=== PATIENT | female | born 1995 | race Caucasian/White ===

== ENCOUNTER 2019-03-06 02:02 | Inpatient (IN) ==
[2019-03-06] MEDS ORDERED: *HR* LORazepam 1 MG TABLET PO PRN (02:17)
[2019-03-06] MEDS ORDERED: Mag Hydrox/Al Hydrox/Simeth 30 ML UDC PO PRN (02:17)
[2019-03-06] MEDS ORDERED: MOM Conc 10 ML UD.LIQ PO PRN (02:17)
[2019-03-06] MEDS ORDERED: Ibuprofen 400 MG TABLET PO PRN (02:17)
[2019-03-06] MEDS ORDERED: Haloperidol Lactate 5 MG/ML VIAL IM PRN (02:17)
[2019-03-06] MEDS ORDERED: *HR* LORazepam 2 MG/ML VIAL IM PRN (02:17)
[2019-03-06] MEDS: traZODone 50 MG TABLET PO PRN ×2 (02:35→20:46)
[2019-03-06] MEDS: hydrOXYzine pamoate 25 MG CAPSULE PO PRN ×2 (02:35→20:47)
[2019-03-06] MEDS: Nicotine 21 MG PATCH.TD24 TD SCH (09:16)
[2019-03-07 08:50] VITALS: BP 110/77
[2019-03-07] MEDS: Nicotine 21 MG PATCH.TD24 TD SCH (08:52)
--- NOTE | 2019-03-07 10:39 | Psychiatry History & Physical ---
Date of Encounter: 03/07/19 Time of Encounter: 10:33 History of Present Illness Patient Stated Chief Complaint: suicidal ideation Medicare Admission Attestation: For traditional Medicare patients the provided hospital inpatient services are reasonable and necessary and in the case of services not specified as inpatient-only under 42 CFR 419.22 (n), that they are appropriately provided as inpatient services in accordance 42 CFR 412.3. For Critical Access Hospital the patient may reasonably be expected to be discharged or transferred to a hospital within 96 hours after admission to the Critical Access Hospital. Admitted From: Home Plans for Post Hospital Care: Home History of Present Illness: Ms. Bullard is a 23 year old female who was admitted for SI and cutting behaviors. Client reports a long history of SI and cutting behaviors but states that yesterday was the worst she has ever injured herself and knew she needed help. Client has never been inpatient before. She has had outpatient linkage but nothing current. Previously took Zoloft with some benefit and interested in restarting it. Discussed DBT theray. Client interested but no DBT therapists in her area. Will give her information on providers who practice DBT so client has the option of following up in the future. Will also link her with providers in her area. Client states she is physically healthy. No major drugs of abuse. Support from family but lives with grandmother and grandmother left yesterday for [place] due to a in the family. Client states her grandmother leaving is part of the reason her urges to cut intensified. *H&P written yesterday but did not save so this is a late entry. Past Med Surg Social Fam HX - Past Medical History Medical history: no medical history - Past Psychiatric History Psychiatric history: Reports: depression Family psychiatric history: No Family History of Suicide: None - Past Surgical History Surgical History: cholecystectomy - Social History Smoking Status: Current every day smoker Smokeless Tobacco Status: No Alcohol use: heavy Drug use: marijuana, methamphetamine Medications & Allergies No Known Home Drugs 03/06/19 [History] Allergy/AdvReac Type Severity Reaction Status Date / Time Penicillins [PCN] Allergy Anaphylaxis Verified 06/10/18 08:22 Review of Systems Constitutional: Denies: fever, chills, weakness, weight change Eyes: Denies: eye pain, vision change Ears, Nose, Throat: Denies: ear pain, throat pain, dental pain, hearing loss, congestion Cardiovascular: Denies: chest pain, palpitations, dyspnea on exertion Respiratory: Denies: cough, dyspnea, wheezes Gastrointestinal: Denies: abdominal pain, nausea, vomiting, diarrhea, constipation Genitourinary female: Denies: urgency, dysuria, frequency, abnormal menses, dyspareunia Musculoskeletal: Denies: joint swelling, joint pain Integumentary: Denies: rash, lesions, pruritus Neurological: Denies: headache, weakness, numbness, memory loss Endocrine: Denies: fatigue, heat or cold intolerance Hematologic/Lymphatic: Denies: easy bruising, lymphadenopathy Allergic/Immunologic: Denies: urticaria, itchy eyes Exam - HEENT Head exam IM: Present: atraumatic Eye exam IM: Present: EOMI, normal appearance, PERRL ENT exam IM: Present: normal exam - Neurological Neurological exam: Present: CN II-XII intact - Respiratory Respiratory exam IM: Present: CTAB - GI/Abdominal GI/Abdominal exam IM: Present: normal bowel sounds, soft. Absent: tenderness - Extremities Extremities exam IM: Present: full ROM - Skin Skin exam IM: Present: abrasion - Constitutional Vitals: Temp Pulse Resp BP Pulse Ox 97.7 F 85 18 110/77 98 03/07/19 08:49 03/07/19 08:49 03/07/19 08:49 03/07/19 08:49 03/07/19 08:49 General appearance: age & developmentally appropriate, well-groomed, well- nourished - Musculoskeletal Gait: normal Station: relaxed Strength & Tone: normal for patient - Psychiatric Patient Orientation: Yes Person, Yes Time, Yes Place Level of alertness: Alert Behavior: calm, cooperative Psychomotor activity: Normal Eye Contact: Maintains Eye Contact Mood Description: Depressed Affect description: congruent with mood Speech Volume: Normal Speech pattern: normal rate, normal rhythm, normal tone, fluent, spontaneous Language & Vocabulary: consistent with education Thought Process: Linear Thought Content: Yes Suicidal ideation, No Homicidal ideation, No Overt delusions Perceptual Disturbances: No Auditory hallucinations, No Visual hallucinations Attention Span Ability: Capable of Focused Attention Memory Description: Grossly Intact Patient Reliability: Reliable Historian Fund of knowledge: Yes abstraction ability, Yes average, Yes aware of current events Intelligence Estimate: Average Judgment: Limited Insight: Partial Assessment and Plan (1) Major depress dis, severe Current visit: Yes Status: Acute Plan: Admit inpatient for safety and stabilization, Close observation, Suicide Precautions per unit protocol, Encourage participation in unit milieu, Group Therapy, Monitor sleep, Monitor appetite Risks, benefits, side effects, alternatives discussed w/pt: Yes Patient agreeable to treatment: Yes Plans for Post Hospital Care: Home Estimated Length of Stay (Days): 3 (2) Borderline personality disorder Current visit: Yes Status: Acute Plan: Admit inpatient for safety and stabilization, Close observation, Suicide Precautions per unit protocol, Encourage participation in unit milieu, Group Therapy, Monitor sleep, Monitor appetite Risks, benefits, side effects, alternatives discussed w/pt: Yes Patient agreeable to treatment: Yes Plans for Post Hospital Care: Home Estimated Length of Stay (Days): 3
--- NOTE | 2019-03-07 10:48 | Discharge Summary ---
Date of Encounter: 03/07/19 Time of Encounter: 10:42 Diagnosis - Discharge Diagnosis (1) Major depress dis, severe Status: Acute (2) Borderline personality disorder Status: Acute Medications - Discharge Medications Prescriptions: Sertraline [Zoloft] 50 mg PO DAILY #30 tablet Sertraline [Zoloft] 50 mg PO DAILY #30 tablet 03/07/19 [Rx] Allergy/AdvReac Type Severity Reaction Status Date / Time Penicillins [PCN] Allergy Anaphylaxis Verified 06/10/18 08:22 Provider Date of admission: 03/06/19 02:02 Primary care physician: PCP NONE Discharging clinician: Stacey Platt Psychiatry Exam - Constitutional Vitals: Temp Pulse Resp BP Pulse Ox 97.7 F 85 18 110/77 98 03/07/19 08:49 03/07/19 08:49 03/07/19 08:49 03/07/19 08:49 03/07/19 08:49 General appearance: age & developmentally appropriate, well-groomed, well- nourished - Musculoskeletal Gait: normal Station: relaxed Strength & Tone: normal for patient - Psychiatric Patient Orientation: Yes Person, Yes Time, Yes Place Level of alertness: Alert Behavior: calm, cooperative Psychomotor activity: Normal Eye Contact: Maintains Eye Contact Mood Description: Euthymic/stable Affect description: congruent with mood, full range Speech Volume: Normal Speech pattern: normal rate, normal rhythm, normal tone, fluent, spontaneous Language & Vocabulary: consistent with education Thought Process: Linear, Goal Oriented Thought Content: No Suicidal ideation, No Homicidal ideation, No Overt delusions Perceptual Disturbances: No Auditory hallucinations, No Visual hallucinations Attention Span Ability: Capable of Focused Attention Memory Description: Grossly Intact Patient Reliability: Reliable Historian Fund of knowledge: Yes abstraction ability, Yes aware of current events Intelligence Estimate: Average Judgment: Fair Insight: Partial Hospital Course Hospital course: Ms. Bullard is a 23 year old female who was admitted for SI and cutting behaviors. Client has a long history of both and felt she needed to help herself so voluntarily sought admission. Previously took Zoloft but had been off medication for a while. This was restarted with good clinical effect. Discussed diagnosis and client indicated she identified with Borderline Personality Disorder. Discussed DBT and client indicated interest in following up with a therapist trained in DBT. Normally lives with grandmother but grandmother currently out of town which served to trigger client's cutting behaviors. Client intends to stay with other supportive family members until her grandmother returns. Client denies any SI since prior to admission. Denies any further urges to cut. Denies HI/AH/VH. Today she is bright, reactive, and future oriented. Denies SI, intent, or plan, and feels safe to go home. Total time spent with client greater than 30 minutes. Patient was educated of her diagnosis and the risks, benefits, and side effects of this treatment and alternative treatment options and was monitored for responsiveness and side effects. Mood, anxiety, sleep, appetite, and interest improved, as did future orientation. Self-harm thoughts subsided, thinking cleared, psychosis resolved, and mood stabilized. Patient was able to attend both individual and group therapy sessions as well as meeting with the psychiatrist daily and urged to discuss any medication or treatment issues or other concerns. The patient was educated primarily by verbal means about their diagnosis and manifestations in their life. The option for treatment including group and individual therapy programming was offered to the patient in the use of medications with all their potential risks, benefits, and side effects were discussed with the patient at length. The patient was given the opportunity to ask questions and was noted to participate in the treatment in the planning process. The patient felt ready and eager to be discharged from the inpatient psychiatric unit to continue on with treatment as an outpatient. The patient agreed that she is safe for this disposition. The patient was considered to be able to participate in informed consent and decision making with respect to medical, legal, and financial issues of the time of discharge. At the time of discharge the patient adamantly denied any concerns for lethality including suicidal or homicidal thoughts ideations or plans and was future oriented toward ongoing mental health care, medical follow-up and sobriety. - Time Spent with Patient Total time spent providing and/or coordinating discharge services: Assessment and Plan - Patient/Caregiver Discharge Instructions Activity: resume usual activities as tolerated Diet: regular diet - Follow up Plan Follow up with: [email or web address] [Outside] Functional capacity at discharge: independent ambulation Overall status at discharge: Stable Disposition: Home, Self-Care Quality - Multiple Antipsychotics Patient discharged on 2 or more antipsychotic medications: No Procedures - Procedures Procedures: Medication Management, Crisis Stabilization, Supportive Therapy, Group Therapy
== END 2019-03-07 12:00 | disposition home or self-care (01) | DRG 751 ==
LOC: 1ANU 02:02
PROVIDERS: ADMIT Psychiatry & Neurology Psychiatry; ATTEND Psychiatry & Neurology Psychiatry